=== PATIENT | male | born 1985 | race Caucasian/White ===

== ENCOUNTER 2017-03-18 11:18 | Inpatient (IN) | payer BC, SELFPAY ==
[2017-03-18] MEDS ORDERED: Sodium Chloride 0.9% 1,000 ML IV ONE (11:22)
[2017-03-18] MEDS ORDERED: Metoprolol Tartrate 5 MG in Sodium Chloride 0.9% 50 ML IV ONE (11:26)
[2017-03-18] MEDS ORDERED: Enoxaparin 80 MG/0.8 ML Syringe SUBCUT ONE (11:27)
[2017-03-18] MEDS ORDERED: Metoprolol Tartrate 50 MG Tab PO ONE (11:27)
[2017-03-18] MEDS ORDERED: Aspirin 81 MG Tab.Chew PO ONE (11:29)
[2017-03-18] MEDS ORDERED: Metoprolol Tartrate 5 MG/5 ML SDV IVPUSH ONE ×2 (11:32→11:42)
[2017-03-18] MEDS ORDERED: Diphtheria,Pertussis(Acell),Tetanus Vaccine 0.5 ML SDV IM ONE (11:35)
--- NOTE | 2017-03-18 11:36 | EDM.PDOC ---
ED HPI GENERAL MEDICAL PROBLEM - General Chief Complaint: General Stated Complaint: FOUND ON FLOOR IN GARAGE Time Seen by Provider: 03/18/17 11:20 Source of Information: Reports: Patient, EMS History Limitations: Reports: No Limitations - History of Present Illness INITIAL COMMENTS - FREE TEXT/NARRATIVE: 31 yo male here after being found unconscious on the floor of a garage. Family opened his airway and he started breathing better and came around. EMS found he was diaphoretic, had a bump on his head and was tachy. Patient is not on any regular meds and does not have a doctor. Unsure about tetanus. Has pain only to his forehead. No hx of Afib. Thinks he may have undiagnosed sleep apnea. Denies ETOH. 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) (None) - Related Data Allergies Allergy/AdvReac Type Severity Reaction Status Date / Time No Known Allergies Allergy Verified 03/18/17 11:55 Home Meds: Home Meds NK [No Known Home Meds] 03/18/17 [History] ED ROS GENERAL - Review of Systems Review Of Systems: See Below Constitutional: Reports: Diaphoresis HEENT: Reports: No Symptoms Respiratory: Reports: No Symptoms Cardiovascular: Reports: No Symptoms Endocrine: Reports: No Symptoms GI/Abdominal: Reports: No Symptoms : Reports: No Symptoms Musculoskeletal: Reports: No Symptoms Skin: Reports: Diaphoresis Neurological: Reports: No Symptoms Psychiatric: Reports: No Symptoms ED EXAM, GENERAL - Physical Exam Exam: See Below Exam Limited By: Other (no old records) General Appearance: Alert, WD/WN, Mild Distress, Obese Eye Exam: Bilateral Eye: Normal Inspection, PERRL Ears: Normal External Exam, Normal Canal, Hearing Grossly Normal, Normal TMs Ear Exam: Bilateral Ear: Auricle Normal, Canal Normal, TM normal Nose: Normal Inspection, Normal Mucosa Throat/Mouth: Normal Inspection, Normal Lips, Normal Oropharynx, Normal Voice, No Airway Compromise Head: Facial Swelling (L eyebrow area swelling) Neck: Normal Inspection, Supple, Non-Tender, Full Range of Motion Respiratory/Chest: No Respiratory Distress, Lungs Clear, Normal Breath Sounds, No Accessory Muscle Use Cardiovascular: Regular Rate, Rhythm, No Edema GI/Abdominal: Normal Bowel Sounds, Soft, Non-Tender, No Distention Back Exam: Normal Inspection. No: CVA Tenderness (R), CVA Tenderness (L), Muscle Spasm, Paraspinal Tenderness, Vertebral Tenderness Extremities: Normal Inspection, Normal Range of Motion, Non-Tender Neurological: Alert, Oriented, CN II-XII Intact, Normal Cognition, No Motor/ Sensory Deficits Psychiatric: Normal Affect, Normal Mood Skin Exam: Warm, Dry, Intact, Normal Color, No Rash Lymphatic: No Adenopathy Course - Vital Signs Text/Narrative:: NS 1000 ml IV, Metoprolol 5 mg IV x 2(BP dropped significantly with this, but HR came down only modestly) metoprolol 50 mg po, Adacel IM Diltiazem 20 mg IV, followed by a diltiazem drip IV Head CT scan-neg Dr. Mendoza called @ 1236h Last Recorded V/S: Last Vital Signs Temp Pulse 126 H 03/18/17 11:51 Resp BP 114/58 L 03/18/17 12:10 Pulse Ox - Orders/Labs/Meds Orders: Active Orders 24 hr Category Date Time Status Cardiac Monitoring [RC] .As Directed Care 03/18/17 11:21 Active Vaccines to be Administered [RC] PER UNIT ROUTINE Care 03/18/17 11:35 Active Head wo Cont [CT] Stat Exams 03/18/17 11:30 Ordered TSH ULTRASENSITIVE [CHEM] Stat Lab 03/18/17 11:54 Received Diltiazem 100 MG in Normal Saline Adv @ 5 MG/HR(100ml) Med 03/18/17 12:30 Ordered Diltiazem [Cardizem] 100 mg Sodium Chloride 0.9% [Normal Saline] 100 ml IV TITRATE Sodium Chloride 0.9% [Normal Saline] 1,000 ml Med 03/18/17 12:30 Active IV ASDIRECTED Sodium Chloride 0.9% [Saline Flush] Med 03/18/17 11:41 Active 10 ml FLUSH ASDIRECTED PRN Saline Lock Insert [OM.PC] Routine Oth 03/18/17 11:41 Ordered EKG 12 Lead [EK] Routine Ther 03/18/17 11:21 Ordered Medication Orders Sodium Chloride (Normal Saline) 1,000 mls @ 999 mls/hr IV ASDIRECTED JAMES Sodium Chloride (Saline Flush) 10 ml FLUSH ASDIRECTED PRN PRN Reason: Keep Vein Open Last Admin: 03/18/17 11:42 Dose: 10 ml Labs: Laboratory Tests 03/18/17 03/18/17 03/18/17 Range/Units 11:54 11:54 11:54 WBC 12.2 H (4.5-12.0) X10-3/uL RBC 5.02 (4.30-5.75) x10(6)uL Hgb 16.3 H (11.5-15.5) g/dL Hct 48.2 (30.0-51.3) % MCV 96.0 (80-96) fL MCH 32.4 (27.7-33.6) pg MCHC 33.8 (32.2-35.4) g/dL RDW 12.3 (11.5-15.5) % Plt Count 265 (125-369) X10(3)uL Sodium 138 (135-145) mmol/L Potassium 3.6 (3.5-5.3) mmol/L Chloride 105 (100-110) mmol/L Carbon Dioxide 16 L (23-29) mmol/L BUN 5 (5-20) mg/dL Creatinine 1.1 (0.6-1.3) mg/dL Est Cr Clr Drug Dosing TNP Estimated GFR (MDRD) > 60 (>60) BUN/Creatinine Ratio 4.5 L (9-20) Glucose 119 H (80-116) mg/dL Calcium 9.3 (8.6-10.2) mg/dL Troponin I 0.05 (0.02-0.06) NG/ML Meds: Medications Generic Name Dose Route Start Last Admin Trade Name Freq PRN Reason Stop Dose Admin Sodium Chloride 1,000 mls @ 999 mls/hr 03/18/17 12:30 Normal Saline IV ASDIRECTED JAMES Sodium Chloride 10 ml 03/18/17 11:41 03/18/17 11:42 Saline Flush FLUSH 10 ml ASDIRECTED PRN Administration Keep Vein Open Discontinued Medications Generic Name Dose Route Start Last Admin Trade Name Freq PRN Reason Stop Dose Admin Aspirin 324 mg 03/18/17 11:29 03/18/17 11:40 Aspirin PO 03/18/17 11:30 324 mg ONETIME ONE Administration Diltiazem HCl 20 mg 03/18/17 12:07 03/18/17 12:10 Diltiazem IVPUSH 03/18/17 12:08 20 mg ONETIME ONE Administration Diphtheria/Tetanus/Acell Pertussis 0.5 ml 03/18/17 11:35 03/18/17 12:13 Adacel IM 03/18/17 11:36 0.5 ml .ONCE ONE Administration Enoxaparin Sodium 160 mg 03/18/17 11:27 Lovenox SUBCUT 03/18/17 11:28 ONETIME ONE Sodium Chloride 1,000 mls @ 1,000 mls/hr 03/18/17 11:22 03/18/17 11:29 Normal Saline IV 03/18/17 12:21 1,000 mls/hr .BOLUS ONE Administration Metoprolol Tartrate 5 mg/ 55 mls @ 100 mls/hr 03/18/17 11:26 03/18/17 11:51 Sodium Chloride IV 03/18/17 11:58 Not Given ONETIME ONE Metoprolol Tartrate 50 mg 03/18/17 11:27 03/18/17 11:40 Lopressor PO 03/18/17 11:28 50 mg ONETIME ONE Administration Metoprolol Tartrate 5 mg 03/18/17 11:32 03/18/17 11:32 Lopressor IVPUSH 03/18/17 11:33 5 mg ONETIME ONE Administration Metoprolol Tartrate 5 mg 03/18/17 11:42 03/18/17 11:51 Lopressor IVPUSH 03/18/17 11:43 5 mg ONETIME ONE Administration Departure - Departure Time of Disposition: 12:45 Disposition: Admitted As Inpatient 64 Condition: Fair Clinical Impression: Atrial fibrillation with RVR Head injury Qualifiers: Encounter type: initial encounter Qualified Code(s): S09.90XA - Unspecified injury of head, initial encounter - Discharge Information Forms: ED Department Discharge - My Orders Last 24 Hours: My Active Orders 03/18/17 11:21 Cardiac Monitoring [RC] .As Directed EKG 12 Lead [EK] Routine 03/18/17 11:30 Head wo Cont [CT] Stat 03/18/17 11:35 Vaccines to be Administered [RC] PER UNIT ROUTINE 03/18/17 11:41 Sodium Chloride 0.9% [Saline Flush] 10 ml FLUSH ASDIRECTED PRN Saline Lock Insert [OM.PC] Routine 03/18/17 11:54 TSH ULTRASENSITIVE [CHEM] Stat 03/18/17 12:30 Diltiazem 100 MG in Normal Saline Adv @ 5 MG/HR(100ml) Diltiazem [Cardizem] 100 mg Sodium Chloride 0.9% [Normal Saline] 100 ml IV TITRATE Sodium Chloride 0.9% [Normal Saline] 1,000 ml IV ASDIRECTED - Assessment/Plan Last 24 Hours: My Active Orders 03/18/17 11:21 Cardiac Monitoring [RC] .As Directed EKG 12 Lead [EK] Routine 03/18/17 11:30 Head wo Cont [CT] Stat 03/18/17 11:35 Vaccines to be Administered [RC] PER UNIT ROUTINE 03/18/17 11:41 Sodium Chloride 0.9% [Saline Flush] 10 ml FLUSH ASDIRECTED PRN Saline Lock Insert [OM.PC] Routine 03/18/17 11:54 TSH ULTRASENSITIVE [CHEM] Stat 03/18/17 12:30 Diltiazem 100 MG in Normal Saline Adv @ 5 MG/HR(100ml) Diltiazem [Cardizem] 100 mg Sodium Chloride 0.9% [Normal Saline] 100 ml IV TITRATE Sodium Chloride 0.9% [Normal Saline] 1,000 ml IV ASDIRECTED
[2017-03-18] MEDS ORDERED: Sodium Chloride 0.9% 10 ML Syringe FLUSH PRN (11:41)
[2017-03-18] MEDS ORDERED: Diltiazem 25 MG/5 ML SDV IVPUSH ONE (12:07)
[2017-03-18] MEDS ORDERED: Sodium Chloride 0.9% 1,000 ML IV SCH ×2 (12:30→12:45)
[2017-03-18] MEDS ORDERED: Diltiazem 100 MG in Sodium Chloride 0.9% 100 ML IV SCH (12:30)
[2017-03-18] MEDS ORDERED: Ondansetron 4 MG Tab.DIS PO PRN (12:41)
[2017-03-18] MEDS ORDERED: Acetaminophen 325 MG Tab PO PRN (12:41)
[2017-03-18] MEDS ORDERED: Polyethylene Glycol 3350 Powder 17 GM Packet PO PRN (12:41)
[2017-03-18] MEDS ORDERED: Enoxaparin 120 MG/0.8 ML Syringe SUBCUT SCH (13:00)
--- NOTE | 2017-03-18 15:25 | CT ---
INDICATION: Fall with head injury, apparently frontal and occipital, memory loss, loss of consciousness. CT HEAD WITHOUT CONTRAST ONLY: Serial contiguous 2.5 and 5 mm sections were obtained through the brain without contrast. Findings were compared with previous study of 07/15/2012. The current study is 03/18/2017. Total exam DLP = 949.36 mGy-cm. A definite cranial fracture site is not identified. There is a small amount of soft tissue swelling in the scalp anteriorly and slightly to the left at the level of the frontal air cells. Thickening of the linings of the frontal air cells and to a lesser extent the mastoid air cells and more prominently in multiple ethmoidal air cells is noted , as well as in the sphenoidal air cells, suggesting the possibility of either resolving sinusitis or possibly an allergic sinusitis. This should be correlated clinically. No shift of midline structures, ventricular abnormalities, or abnormal areas of density could be identified. No hematoma or hemorrhage was suggested. IMPRESSION: 1. No acute intracranial abnormality. 2. Possible sinusitis. MTDD
[2017-03-18] MEDS ORDERED: Clopidogrel 75 MG Tab PO ONE (16:12)
[2017-03-18] MEDS ORDERED: Heparin Sodium/D5W 25,000 UNITS/500 ML BAG IV SCH (16:15)
--- NOTE | 2017-03-18 17:30 | PCM.HP ---
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 He states he up on a small step ladder up 2 steps. Next thing his father found him on the ground blue not breathing. The father states he did not know CPR so he called the ambulance. By the time and lives with her he was breathing. He is brought to the emergency room and found to have rapid atrial fibrillation. His initial troponin was within normal limits. Patient had a head CT that was reported by the ER doctor as negative. Patient was given metoprolol IV and it did not slow his rate down. He was changed to Cardizem drip. He was given 4 baby aspirin the ER and a shot of Lovenox and then transferred to the ICU. Another troponin came back 2.16. Patient is asymptomatic. He denies chest pain, shortness of breath, diaphoresis , jaw pain, arm pain. His mother of a massive CVA at the age of 48 no other cardiac history in the family. He does smoke. He states he has drank 12 mixed drinks of whiskey the last 4 nights. - Related Data Allergies/Adverse Reactions: Allergies Allergy/AdvReac Type Severity Reaction Status Date / Time No Known Allergies Allergy Verified 03/18/17 11:55 Home Medications: Home Meds NK [No Known Home Meds] 03/18/17 [History] Past Medical History - Past Health History Medical/Surgical History: Denies Medical/Surgical History Neurological History: Reports: Seizure Social & Family History - Family History Neurological: Reports: CVA - Tobacco Use Smoking Status *Q: Current Every Day Smoker Years of Tobacco use: 12 Packs/Tins Daily: 1 - Caffeine Use Caffeine Use: Reports: Energy Drinks, Soda - Alcohol Use Days Per Week of Alcohol Use: 3 Number of Drinks Per Day: 12 Total Drinks Per Week: 36 - Recreational Drug Use Recreational Drug Use: No H&P Review of Systems - Review of Systems: Review Of Systems: See Below General: Reports: No Symptoms HEENT: Reports: No Symptoms Pulmonary: Reports: Other (See history of present illness) Cardiovascular: Reports: Other (See history of present illness) Gastrointestinal: Reports: No Symptoms Genitourinary: Reports: No Symptoms Musculoskeletal: Reports: No Symptoms Skin: Reports: No Symptoms Psychiatric: Reports: No Symptoms Neurological: Reports: No Symptoms Hematologic/Lymphatic: Reports: No Symptoms Immunologic: Reports: No Symptoms Exam - Exam Exam: See Below - Vital Signs Vital Signs: Last Vital Signs Temp 98 F 03/18/17 13:12 Pulse 118 H 03/18/17 12:45 Resp 21 H 03/18/17 15:00 BP 127/67 03/18/17 15:00 Pulse Ox 96 03/18/17 15:00 Weight: 247 lb 9.6 oz - Exam General: Alert, Oriented, Cooperative HEENT: PERRLA, Hearing Intact, Posterior Pharynx Clear, TMs Clear Neck: Supple, Trachea Midline Lungs: Clear to Auscultation, Normal Respiratory Effort. No: Crackles, Rales, Rhonchi Cardiovascular: Irregular Rhythm, Tachycardia. No: Systolic Murmur, Diastolic Murmur GI/Abdominal Exam: Normal Bowel Sounds, Soft, Non-Tender, No Organomegaly, No Distention, No Abnormal Bruit, No Mass Back Exam: Normal Inspection, Full Range of Motion, NT Extremities: Normal Inspection, Normal Range of Motion, Non-Tender, No Pedal Edema, Normal Capillary Refill Skin: Other (Some bleeding and ecchymosis of the forehead) Neurological: Normal Speech, Normal Tone Neuro Extensive - Mental Status: Alert, Oriented x3, Normal Mood/Affect, Memory Intact Psychiatric: Alert, Normal Affect, Normal Mood - Patient Data Lab Results Last 24 hrs: Laboratory Results - last 24 hr 03/18/17 Range/Units 15:10 Troponin I 2.16 H* (0.02-0.06) NG/ML Result Diagrams: 03/18/17 11:54 03/18/17 11:54 EKG INTERPRETATION Rhythm: A-Fib (Some ST depression anterior lateral leads) *Q Meaningful Use (ADM) - VTE *Q VTE Criteria *Q: - Stroke *Q Stroke Criteria *Q: - AMI *Q AMI Criteria *Q: - Problem List (1) Myocardial infarction acute SNOMED Code(s): 66202768 ICD Code: I21.3 - ST ELEVATION (STEMI) MYOCARDIAL INFARCTION OF [facility] SITE Status: Acute Current Visit: Yes (2) Atrial fibrillation with RVR SNOMED Code(s): 173306710379610 ICD Code: I48.91 - UNSPECIFIED ATRIAL FIBRILLATION Status: Acute Current Visit: Yes Problem List Initiated/Reviewed/Updated: Yes Orders Last 24hrs: Active Orders 24 hr Category Date Time Status Chest 1V Frontal [CR] Routine Exams 03/18/17 16:49 Taken Aspirin Med 03/19/17 09:00 Active 81 mg PO DAILY Heparin Sodium/D5W [Heparin 25,000 Units in D5W 500 ML] Med 03/18/17 16:15 Pending 25,000 units in 500 ml IV TITRATE Sodium Chloride 0.9% [Normal Saline] 1,000 ml Med 03/18/17 12:45 Active IV ASDIRECTED Medication Orders Acetaminophen (Tylenol) 650 mg PO Q4H PRN PRN Reason: Pain (Mild 1-3)/fever Aspirin (Aspirin) 81 mg PO DAILY JAMES Enoxaparin Sodium (Lovenox) 120 mg SUBCUT Q12H JAMES Last Admin: 03/18/17 13:56 Dose: 120 mg Sodium Chloride (Normal Saline) 1,000 mls @ 999 mls/hr IV ASDIRECTED JAMES Last Admin: 03/18/17 12:34 Dose: 999 mls/hr Diltiazem HCl 100 mg/ Sodium (Chloride) 100 mls @ 5 mls/hr IV TITRATE JAMES; 5 MG /HR PRN Reason: Protocol Last Titration: 03/18/17 15:03 Dose: 15 mg/hr, 15 mls/hr Titration: 03/18/17 15:03 Dose: 1,515 mg/hr, 1,515 mls/hr Titration: 03/18/17 13:50 Dose: 10 mg/hr, 10 mls/hr Admin: 03/18/17 12:45 Dose: 5 mg/hr, 5 mls/hr Sodium Chloride (Normal Saline) 1,000 mls @ 100 mls/hr IV ASDIRECTED JAMES Last Admin: 03/18/17 13:58 Dose: 100 mls/hr Heparin Sodium/Dextrose (Heparin 25,000 Units In D5w 500 Ml) 25,000 units in 500 mls @ 33.693 mls/hr IV TITRATE JAMES; 15 UNITS/KG/HR PRN Reason: Protocol Stop: 03/18/17 16:15 Ondansetron HCl (Zofran Odt) 4 mg PO Q6H PRN PRN Reason: nausea, able to take PO Polyethylene Glycol (Miralax) 17 gm PO DAILY PRN PRN Reason: Constipation Sodium Chloride (Saline Flush) 10 ml FLUSH ASDIRECTED PRN PRN Reason: Keep Vein Open Last Admin: 03/18/17 11:42 Dose: 10 ml Assessment/Plan Comment:: 1. Plavix 300 mg by mouth given. 2. He was given Lovenox 20 mg I am. 3. Talk to at [facility]. She accepts the patient in transfer with [facility] ambulance. 4. Told the patient to be nothing by mouth until he still otherwise at [facility]. 5. Continue Cardizem drip to keep heart rate below 100 beats a minute.
[2017-03-18 19:19] VITALS: BP 114/64
[2017-03-19] MEDS ORDERED: Aspirin 81 MG Tab.Chew PO SCH (09:00)
--- NOTE | 2017-03-19 10:29 | CR ---
INDICATION: High troponin. CHEST: AP upright portable view of the chest was obtained 03/18/2017. No comparisons were available. Relatively poor inspiration is suggested. The heart is most likely within normal limits in size, allowing for the AP positioning and relatively poor inspiration. Overlying EKG leads are noted. An active infiltrate or effusion was not identified. IMPRESSION: No acute process. MTDD
== END 2017-03-18 18:05 | DRG 190 ==
LOC: FB.ED 11:18 → FB.ICU 12:41
PROVIDERS: ADMIT Emergency Medicine; ATTEND Family Medicine
DX: I21.3 ST elevation (STEMI) myocardial infarction of unspecified site (principal); I48.91 Unspecified atrial fibrillation; S06.9X9A Unspecified intracranial injury with loss of consciousness of unspecified duration, initial encounter; W11.XXXA Fall on and from ladder, initial encounter; Y93.89 Activity, other specified; Y92.015 Private garage of single-family (private) house as the place of occurrence of the external cause; F17.200 Nicotine dependence, unspecified, uncomplicated
CPT/HCPCS: 36415; 70450; 71010; 80048; 83735; 84443; 84484; 85027; 85730; 90471; 90715; 93005; 96361; 96365; 96375; 96376; 99285; A9270-GY; J1650; J3490; J7030; J7040; J7050